=== PATIENT | female | born 1960 | race Caucasian/White ===

== ENCOUNTER 2019-02-15 00:45 | Emergency (ER) | payer OTHER ==
[~2019-02-15] VITALS: Ht 170.2 cm; Wt 81.6 kg
[2019-02-15 00:51] VITALS: Ht 170.2 cm; Wt 81.6 kg
[2019-02-15 01:48] LABS: BASOPHIL % 0.7 % (0-2); PLATELET COUNT 259 x10^3mcL (130-400); RED CELL DISTRIBUTION WIDTH 12.5 % (11.5-14.5)
[2019-02-15 01:52] LABS: CALCIUM 8.7 mg/dL (8.5-10.1); CARBON DIOXIDE 25.9 mmol/L (21-32); CHLORIDE SERUM 105 mmol/L (98-107); CREATININE SERUM 0.8 mg/dL (0.6-1.0); GFR1 > 60 mL/min; GLUCOSE SERUM 103 mg/dL (74-106); POTASSIUM SERUM 3.8 mmol/L (3.5-5.1); SODIUM SERUM 142 mmol/L (136-145)
[2019-02-15 01:56] LABS: ALBUMIN 3.6 g/dL (3.4-5.0); ALKALINE PHOSPHATASE 49 U/L (46-116); ALT/SGPT 18 U/L (14-59); AST/SGOT 14 U/L (15-37); BILIRUBIN TOTAL 0.3 mg/dL (0.20-1.00); TOTAL PROTEIN, SERUM 6.9 g/dL (6.4-8.2)
[2019-02-15 02:35] VITALS: BP 158/86
== END 2019-02-15 02:35 | disposition home or self-care (01) ==
LOC: ED 00:45
PROVIDERS: Emergency Medicine
DX: R07.89 Other chest pain (principal); R11.0 Nausea; R00.2 Palpitations
CPT/HCPCS: 36415; Q0162